=== PATIENT | male | born 1990 | race African-American/Black ===

== ENCOUNTER 2018-06-17 12:44 | Emergency (ER) | payer OTHER ==
[~2018-06-17] VITALS: Ht 172.7 cm; Wt 59.9 kg
[~2018-06-17 12:44] MED LIST: BACTRIM DS TAB1 EACH PO; IBUPROFEN 800800 M1 PO; NORCO 5-325 TA1 EAC1 PO; PENICILLIN VK250 MG PO; VICODIN 5-5001 EACH PO
[2018-06-17 13:40] VITALS: BP 139/92
== END 2018-06-17 13:40 | disposition home or self-care (01) ==
LOC: M.ERS 12:44
DX: J06.9 Acute upper respiratory infection, unspecified (principal)